=== PATIENT | female | born 1970 | race Caucasian/White ===

== ENCOUNTER 2022-01-07 10:41 | Inpatient (IN) ==
[2022-01-07 16:48] LABS: Hematocrit 44.9 % (35.3-44.9); Hemoglobin 15.3 g/dL (11.5-15.4); Mean Corpuscular HGB Conc 34.1 g/dL (31.6-35.5); Mean Corpuscular Hemoglobin 30.9 pg (28.0-33.3); Mean Corpuscular Volume 90.7 fL (83.0-100.0); Mean Platelet Volume 10.1 fL (9.4-12.4); Platelet Count 287 K/mcL (140-400); Red Blood Count 4.95 M/mcL (3.82-4.97); Red Cell Distribution Width 12.5 % (11.5-14.5); White Blood Count 7.7 K/mcL (4.3-11.1)
[2022-01-07] MEDS ORDERED: Mag Hydrox/Al Hydrox/Simeth 30 ML UDC PO PRN (16:51)
[2022-01-07] MEDS ORDERED: Naloxone 0.4 MG/ML INJ IVP PRN (16:51)
[2022-01-07] MEDS ORDERED: Ondansetron ODT 4 MG TAB.RAPDIS SL PRN (16:51)
[2022-01-07] MEDS ORDERED: MOM Conc 10 ML UD.LIQ PO PRN (16:51)
[2022-01-07] MEDS ORDERED: Melatonin 3 MG TABLET PO PRN (16:51)
[2022-01-07 17:08] LABS: BUN/Creatinine Ratio 12 (6-26); Blood Urea Nitrogen 8 mg/dL (6-20); Calcium 9.3 mg/dL (8.6-10.3); Carbon Dioxide 24 mEq/L (23-29); Chloride 108 mEq/L (98-107); Glucose 87 mg/dL (70-105); Osmolality,Calculated 286 (280-300); Potassium 4.2 mEq/L (3.5-5.1); Sodium 139 mEq/L (136-145)
[2022-01-07] MEDS: Nicotine 21 MG PATCH.TD24 TD SCH (18:42)
[2022-01-08] MEDS ORDERED: Acetaminophen 325 MG TABLET PO PRN (00:27)
[2022-01-08] MEDS ORDERED: Gabapentin 400 MG CAPSULE GTUBE PRN (00:30)
[2022-01-08] MEDS: *HR* HYDROcodone/Acet 5/325 mg TABLET PO PRN ×4 (00:36→22:57)
[2022-01-08] MEDS: *HR* Enoxaparin 40 MG/0.4 ML SYRINGE SQ SCH (05:08)
[2022-01-08] MEDS ORDERED: predniSONE 20 MG TABLET PO SCH (09:00)
[2022-01-08] MEDS: Metoprolol XL (24 HR) Succ 50 MG TAB.ER.24H PO SCH (09:35)
[2022-01-08] MEDS: Aspirin Enteric Coated 81 MG Tablet PO SCH (09:35)
[2022-01-08] MEDS: amLODIPine 5 MG TABLET PO SCH (09:36)
[2022-01-08] MEDS: Nicotine 21 MG PATCH.TD24 TD SCH (09:37)
[2022-01-08] MEDS: Gabapentin 300 MG CAPSULE PO SCH ×2 (15:21→20:25)
[2022-01-08] MEDS ORDERED: Gadolinium Contrast Agent (WT Based) IV PRN ×2 (15:50→15:51)
[2022-01-08 16:39] LABS: Basophils % 0.2 %; Eosinophils % 0.1 %; Hematocrit 45.2 % (35.3-44.9); Hemoglobin 15.4 g/dL (11.5-15.4); Immature Granulocytes % 0.5 % (0-4); Lymphocytes # 1.5 K/mcL (0.6-4.6); Lymphocytes % 17.6 %; Mean Corpuscular HGB Conc 34.1 g/dL (31.6-35.5); Mean Corpuscular Hemoglobin 31.6 pg (28.0-33.3); Mean Corpuscular Volume 92.8 fL (83.0-100.0); Monocytes # 0.4 K/mcL (0.0-1.3); Monocytes % 4.4 %; Neutrophils # 6.4 K/mcL (1.6-8.9); Platelet Count 266 K/mcL (140-400); Red Blood Count 4.87 M/mcL (3.82-4.97); Red Cell Distribution Width 12.8 % (11.5-14.5); Segmented Neutrophils % 77.2 %; White Blood Count 8.3 K/mcL (4.3-11.1)
[2022-01-09] MEDS: *HR* Enoxaparin 40 MG/0.4 ML SYRINGE SQ SCH (05:47)
[2022-01-09] MEDS: *HR* HYDROcodone/Acet 5/325 mg TABLET PO PRN ×3 (05:47→21:33)
[2022-01-09] MEDS ORDERED: Gadolinium Contrast Agent (WT Based) IV PRN (07:47)
[2022-01-09] MEDS: amLODIPine 5 MG TABLET PO SCH (09:42)
[2022-01-09] MEDS: Nicotine 21 MG PATCH.TD24 TD SCH (09:42)
[2022-01-09] MEDS: Metoprolol XL (24 HR) Succ 50 MG TAB.ER.24H PO SCH (09:42)
[2022-01-09] MEDS: Aspirin Enteric Coated 81 MG Tablet PO SCH (09:42)
[2022-01-09] MEDS: Gabapentin 300 MG CAPSULE PO SCH ×3 (09:42→21:33)
[2022-01-09 13:55] LABS: BUN/Creatinine Ratio 21 (6-26); Blood Urea Nitrogen 16 mg/dL (6-20); Calcium 9.5 mg/dL (8.6-10.3); Carbon Dioxide 20 mEq/L (23-29); Chloride 106 mEq/L (98-107); Glucose 121 mg/dL (70-105); Osmolality,Calculated 284 (280-300); Potassium 4.3 mEq/L (3.5-5.1); Sodium 136 mEq/L (136-145)
[2022-01-09] MEDS ORDERED: Bisacodyl 10 MG RECTAL SUPPOSITORY RC PRN (14:10)
[2022-01-09] MEDS ORDERED: polyethylene glycoL 3350 17 GM POWD.PACK PO PRN (14:10)
[2022-01-09 17:59] LABS: Rheumatoid Factor < 10 IU/mL (Less than 14)
[2022-01-09] MEDS: Pantoprazole 40 MG VIAL IVP SCH (18:20)
[2022-01-09 18:23] LABS: Folate 14.1 ng/mL (3.0-16.0)
[2022-01-09 18:24] LABS: Vitamin D 25 Hydroxy 28 ng/mL (30-80)
[2022-01-09 18:33] LABS: Lyme Disease Total Antibody Negative (Negative)
[2022-01-10] MEDS: *HR* Enoxaparin 40 MG/0.4 ML SYRINGE SQ SCH (06:05)
[2022-01-10] MEDS: Pantoprazole 40 MG VIAL IVP SCH ×2 (06:05→17:23)
[2022-01-10] MEDS: *HR* HYDROcodone/Acet 5/325 mg TABLET PO PRN ×2 (06:10→17:22)
[2022-01-10] MEDS: Metoprolol XL (24 HR) Succ 50 MG TAB.ER.24H PO SCH (08:07)
[2022-01-10] MEDS: Aspirin Enteric Coated 81 MG Tablet PO SCH (08:08)
[2022-01-10] MEDS: Gabapentin 300 MG CAPSULE PO SCH ×3 (08:08→19:39)
[2022-01-10] MEDS: amLODIPine 5 MG TABLET PO SCH (08:08)
[2022-01-10] MEDS: Nicotine 21 MG PATCH.TD24 TD SCH (08:09)
[2022-01-10] MEDS ORDERED: Cyanocobalamin (B-12) 1,000 MCG/ML VIAL IM ONE (13:03)
[2022-01-10 16:26] VITALS: BP 127/79; PULSE 60; TEMP 97.9; O2SAT 97
[2022-01-13 11:29] LABS: ANA IgG by ELISA NONE DETECTED (None Detected)
[2022-01-13 11:33] LABS: Myelin Assoc Glycoprotein IgM <1000 TU (0-999)
[2022-01-13 13:15] LABS: Aquaporin-4 Receptor Antibody <1.5 U/mL (<=2.9)
== END 2022-01-10 23:59 | disposition other institution (70) | DRG 552 ==
LOC: 4WAOSI 10:41 → EMEROOARM 10:41 → SUATTDRO 17:03 → 4WAOSI 18:16
PROVIDERS: ADMIT Internal Medicine; ATTEND Registered Nurse